=== PATIENT | male | born 2000 | race Asian ===

== ENCOUNTER → 2018-05-24 16:17 | Outpatient (CLI) | payer OTHER, SELFPAY ==
[2018-05-24 17:57] LABS: AST(SGOT) 25 U/L (15-37); Alanine Aminotransfer ALT/SGPT 56 U/L (16-61); Albumin, Serum 4.1 g/dL (3.2-5.0); Alkaline Phosphatase 84 U/L (45-117); Bilirubin, Direct 0.14 mg/dL (0.00-0.30); Globulin 3.4 g/dL (2.2-4.2); Protein, Total 7.5 g/dL (6.4-8.2)
[2018-05-28 20:09] LABS: Hepatitis Be Ag Negative (Negative)
[2018-05-29 10:39] LABS: AFP, Tumor Marker 2.2 ng/mL (0.0-8.3); Hepatitis Be Ab Positive (Negative)
== END ==
PROVIDERS: Referring Provider Internal Medicine Gastroenterology; Visit Provider Internal Medicine Gastroenterology
DX: B18.1 Chronic viral hepatitis B without delta-agent (principal)
CPT/HCPCS: 36415; 80076; 82105; 86707; 87350

== ENCOUNTER → 2018-06-04 10:13 | Outpatient (CLI) | payer OTHER, SELFPAY ==
--- NOTE | 2018-06-04 10:15 | US_ITS ---
STUDY: ABDOMINAL ULTRASOUND - RIGHT UPPER QUADRANT REASON FOR VISIT: Male, 17 years old. Chronic hepatitis B TECHNIQUE: Ultrasound evaluation of the right upper quadrant was performed with real-time and static jeronimo-scale imaging. TECHNICAL QUALITY: Adequate. COMPARISON: None. FINDINGS: Liver: The liver measures 13.0 cm. There is normal echogenicity of the liver. The bile ducts are within normal limits. There is hepatic color flow. The direction of portal flow is hepatopetal. There is no demonstrated mass lesion. Gallbladder: Normal distended gallbladder. The gallbladder wall measures 2.0 mm. There is a negative sonographic Wild's sign. There is no pericholecystic fluid. There are no gallstones. Common Bile Duct (C.B.D.): The common bile duct measures 1.9 mm. Pancreas: Normal size of the head, body and tail of the pancreas. There is normal echogenicity of the pancreas. There is no demonstrated pancreatic mass or cyst. Right Kidney: Normal size of the right kidney. The right kidney measures 10.5 x 4.7 x 5.8 cm. Normal renal cortex. The right cortex measures 2.0 cm. There is a lower pole 1.6 x 2 cm cyst. At least 2 calculi are noted up to 8mm in the right kidney. There is no right hydronephrosis. US/Abdomen Limited IMPRESSION: Right renal calculi and lower pole cyst. Electronically Signed: Bowen Garza DO at 0:03 EST Tel [phone], Service support ,
== END ==
PROVIDERS: Referring Provider Internal Medicine Gastroenterology; Visit Provider Internal Medicine Gastroenterology
DX: B18.1 Chronic viral hepatitis B without delta-agent (principal)
CPT/HCPCS: 76705